=== PATIENT | female | born 1970 | race American Indian/Alaskan Native ===

== ENCOUNTER 2016-08-01 22:11 | Emergency (ER) | payer MEDICAID ==
[2016-08-02] MEDS ORDERED: NORCO 5/325 PO ONE (04:33)
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
[2016-08-02 04:51] VITALS: BP 145/78
== END 2016-08-02 04:50 | disposition home or self-care (01) ==
LOC: ED 22:11
DX: K08.89 Other specified disorders of teeth and supporting structures (principal); J45.909 Unspecified asthma, uncomplicated; F17.200 Nicotine dependence, unspecified, uncomplicated; J44.9 Chronic obstructive pulmonary disease, unspecified; Z91.018 Allergy to other foods; Z88.0 Allergy status to penicillin
CPT/HCPCS: 99282

== ENCOUNTER 2016-08-18 17:08 | Emergency (ER) | payer MEDICAID ==
[2016-08-18 17:56] LABS: Hematocrit 44.1 % (30.3-42.9); Hemoglobin 14.5 gm/dl (10.1-14.3); Mean Corpuscular HGB Conc 33 % (30-34); Mean Corpuscular Hemoglobin 29 pg (28-32); Mean Corpuscular Volume 88 fl (79-97); Platelet Count 200 K/mm3 (140-440); Red Blood Count 5.04 M/mm3 (3.65-5.03); Red Cell Distribution Width 14.3 % (13.2-15.2); White Blood Count 5.1 K/mm3 (4.5-11.0)
[2016-08-18 18:15] LABS: Anion Gap 19 mmol/L; BUN/Creatinine Ratio 13.33; Blood Urea Nitrogen 8 mg/dL (7-17); Calcium 9.3 mg/dL (8.4-10.2); Carbon Dioxide 23 mmol/L (22-30); Chloride 102.2 mmol/L (98-107); Glucose 84 mg/dL (65-100); Potassium 3.9 mmol/L (3.6-5.0); Sodium 140 mmol/L (137-145)
[2016-08-18 18:37] LABS: Bacteria,Urine 1+ /HPF (Negative); Bilirubin,Urine NEG (Negative); Blood,Urine NEG (Negative); Ketones,Urine NEG (Negative); Leukocyte Esterase,Urine LG (Negative); Mucus,Urine FEW /HPF; Nitrite,Urine NEG (Negative); Protein,Urine <15 mg/dL mg/dL (Negative)
--- NOTE | 2016-08-18 23:25 | Cat Scan Report ---
FINAL REPORT EXAM: CT LUMBAR SPINE WO CON HISTORY: BACK PAIN TECHNIQUE: CT images are acquired through the lumbar spine without contrast. Transaxial coronal and sagittal reformations are provided. PRIORS: None. FINDINGS: Lumbar lordosis is intact. Vertebral body heights and intervertebral disc spaces are preserved. Posterior disc bulging is present at L4-L5 and L5-S1. There is no severe spinal canal or neural foraminal stenosis within limits of noncontrast CT. No listhesis, spondylolysis or other fracture. Paraspinal soft tissues to include imaged portions of the abdomen and pelvis demonstrate an unremarkable noncontrast appearance. IMPRESSION: No fracture or gross lumbar malalignment. Posterior disc bulges are present at L4-L5 and L5-S1. There is no evident severe stenosis within limits of noncontrast CT. Consider MRI for further evaluation as warranted.
--- NOTE | 2016-08-19 00:09 | Cat Scan Report ---
FINAL REPORT PROCEDURE: CT THORACIC SPINE WO CON TECHNIQUE: Computerized axial tomography of the thoracic spine was performed from C7 - L1 without contrast material. HISTORY: BACK PAIN COMPARISON: No prior studies are available for comparison. FINDINGS: There are no fractures or malalignments. The disc spaces are normal. The facet joints are intact there is no bony spinal or foraminal stenosis. There is no paraspinal or epidural soft tissue abnormality. IMPRESSION: Normal Examination
[2016-08-19] MEDS ORDERED: ZOFRAN IV ONE (00:43)
[2016-08-19] MEDS ORDERED: SUBLIMAZE IV ONE (00:43)
[2016-08-19] MEDS ORDERED: TORADOL IV ONE (00:43)
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
--- NOTE | 2016-08-19 03:08 | Magnetic Resonance Report ---
FINAL REPORT PROCEDURE: MR LUMBAR SPINE WO CON TECHNIQUE: Magnetic resonance imaging of the lumbar spine was performed using standard pulse sequences without contrast material. CPT 89268 HISTORY: low back pain, LLE pain, urinary incontinence COMPARISON: CT dated 08/18/2016 FINDINGS: There is no fracture, malalignment or bone marrow edema. The conus medullaris ends at L1 and is normal in configuration. There is no intramedullary edema, hemorrhage, mass or gliosis. L1-2: No significant abnormality . L2-3: No significant abnormality . L3-4: There is mild disc bulging. There is no herniation or spinal stenosis. There is mild facet arthropathy. There is no foraminal stenosis. L4-5: There is mild loss of disc height and disc bulging. There is moderate facet hypertrophy causing moderate bilateral foraminal stenosis. There is no disc herniation or spinal stenosis.. L5-S1: There is moderate loss of disc height and mild disc bulging. There is no disc herniation. There is moderate facet hypertrophy. There is severe bilateral foraminal stenosis is which is worse on the left. Other: The sacrum and sacroiliac joints are intact. Paraspinal soft tissues and epidural soft tissues are unremarkable.. IMPRESSION: There is no acute traumatic injury. There is no disc herniation or cord compression. There are degenerative disc and facet changes as described at L3-L4 through L5-S1 causing foraminal stenosis which is worse at L5-S1.
[2016-08-19 04:38] VITALS: BP 131/89
== END 2016-08-19 04:39 | disposition home or self-care (01) ==
LOC: ED 17:08
DX: M54.16 Radiculopathy, lumbar region (principal); M54.9 Dorsalgia, unspecified; J45.909 Unspecified asthma, uncomplicated; J44.9 Chronic obstructive pulmonary disease, unspecified; F17.200 Nicotine dependence, unspecified, uncomplicated
CPT/HCPCS: 36415; 72128; 72131; 72148; 80048; 81001; 81025; 85027; 96374; 96375; 99284; J1885; J2405; J3010

== ENCOUNTER 2017-01-01 05:12 | Emergency (ER) | payer MEDICAID ==
[2017-01-01] MEDS ORDERED: PROVENTIL IH ONE (05:19)
[2017-01-01 05:37] LABS: Hematocrit 45.8 % (30.3-42.9); Hemoglobin 14.8 gm/dl (10.1-14.3); Mean Corpuscular HGB Conc 32 % (30-34); Mean Corpuscular Hemoglobin 29 pg (28-32); Mean Corpuscular Volume 88 fl (79-97); Platelet Count 229 K/mm3 (140-440); Red Blood Count 5.19 M/mm3 (3.65-5.03); Red Cell Distribution Width 13.9 % (13.2-15.2); White Blood Count 6.2 K/mm3 (4.5-11.0)
--- NOTE | 2017-01-01 05:45 | XRay Report ---
FINAL REPORT EXAM: XR CHEST ROUTINE 2V HISTORY: Shortness of breath TECHNIQUE: PA and lateral chest radiographs PRIORS: None. FINDINGS: No mediastinal shift. Cardiac silhouette is not enlarged. No pneumothorax, effusion, or focal pulmonary opacity. No acute skeletal finding. IMPRESSION: No focal pulmonary opacity.
[2017-01-01 05:53] LABS: Anion Gap 19 mmol/L; BUN/Creatinine Ratio 11; Blood Urea Nitrogen 8 mg/dL (7-17); Calcium 9.1 mg/dL (8.4-10.2); Carbon Dioxide 23 mmol/L (22-30); Chloride 105.1 mmol/L (98-107); Glucose 94 mg/dL (65-100); Potassium 4.6 mmol/L (3.6-5.0); Sodium 142 mmol/L (137-145)
[2017-01-01 06:33] LABS: Blastocytes % (Manual) 0 %
[2017-01-01 06:34] LABS: Diff Status Complete; Platelet Estimate Consistent w Auto
--- NOTE | 2017-01-01 06:49 | Emergency Department Report ---
ED General Adult HPI - General Chief complaint: Dyspnea/Respdistress Stated complaint: SOB Time Seen by Provider: 01/01/17 06:47 Source: patient Mode of arrival: Ambulatory Limitations: No Limitations - History of Present Illness Initial comments: Patient has a home neb machine and is experiencing an exacerbation of her asthma for the past 2 weeks. She was previously in [place]. States that she's had some cough with occasional white sputum. She does not complain of chest pain at all. She's had no hemoptysis no leg swelling no leg pain. She does admit to some anxiety. She is not currently on prednisone. -: Gradual, week(s) Consistency: constant (wheezing denies pain) Improves with: none Worsens with: none Associated Symptoms: denies other symptoms, other (anxiety) Treatments Prior to Arrival: none - Related Data Home Medications Medication Instructions Recorded Confirmed Last Taken Phenobarbital 1 tab PO DAILY 09/15/14 02/07/15 Unknown Phenytoin [Dilantin] 100 mg PO Q8HR 02/07/15 02/07/15 02/07/15 Previous Rx's Medication Instructions Recorded Last Taken Type ALBUTEROL Inhaler [ProAir HFA 1 puff IH BID PRN #2 inha 10/26/13 02/07/15 Rx Inhaler] Fluticasone (Nf) [Flovent 220 2 puff IH BID #2 inh 10/26/13 Unknown Rx MCG/PUFF HFA] Montelukast [Singulair] 10 mg PO QHS #30 tablet 10/26/13 02/07/15 Rx Citalopram [Celexa] 20 mg PO QDAY #30 tablet 01/21/15 Unknown Rx busPIRone [Buspar] 10 mg PO BID #60 tab 01/21/15 Unknown Rx risperiDONE [RisperDAL] 2 mg PO QDAY #30 tab 01/21/15 02/07/15 Rx Ciprofloxacin HCl [Ciprofloxacin 500 mg PO Q12H #10 tab 01/13/16 Unknown Rx TAB] Prednisone [predniSONE 10 mg 10 mg PO .TAPER #1 tab.ds.pk 01/13/16 Unknown Rx (6-Day Pack, 21 Tabs)] guaiFENesin/DEXTROMETHORPHAN 10 ml PO TID PRN 15 Days liquid 01/13/16 Unknown Rx [Robitussin Cough-Chest Dm Liq] HYDROcodone/APAP 5-325 [[place] 1 each PO Q4HR PRN #15 tablet 08/02/16 Unknown Rx 5/325] HYDROcodone/APAP 5-325 [[place] 1 - 2 each PO Q6HR PRN #20 tablet 08/19/16 Unknown Rx 5/325] Ibuprofen [Motrin 800 MG tab] 800 mg PO Q8HR PRN #20 tablet 08/19/16 Unknown Rx ALBUTEROL Inhaler [ProAir HFA 2 puff IH QID PRN #1 inhalation 01/01/17 Unknown Rx Inhaler] Albuterol Sulfate [Albuterol 0.63% 0.63 mg IH TID PRN #60 ml 01/01/17 Unknown Rx NEBS] Azithromycin [Zithromax Z-NARDA] 250 mg PO DAILY #6 tablet 01/01/17 Unknown Rx predniSONE [Deltasone] 50 mg PO QDAY #6 tab 01/01/17 Unknown Rx Allergies Allergy/AdvReac Type Severity Reaction Status Date / Time Penicillins Allergy Swelling Verified 11/05/12 11:55 tomato [Tomato] Allergy Hives Verified 10/25/13 08:30 ED Review of Systems ROS: Stated complaint: SOB Other details as noted in HPI Constitutional: denies: chills, fever Eyes: denies: eye pain, eye discharge, vision change ENT: denies: ear pain, throat pain Respiratory: cough, wheezing Cardiovascular: denies: chest pain, palpitations Endocrine: no symptoms reported Gastrointestinal: denies: abdominal pain, nausea, diarrhea Genitourinary: denies: urgency, dysuria, discharge Musculoskeletal: denies: back pain, joint swelling, arthralgia Skin: denies: rash, lesions Neurological: denies: headache, weakness, paresthesias Psychiatric: denies: anxiety, depression Hematological/Lymphatic: denies: easy bleeding, easy bruising ED Past Medical Hx - Past Medical History Previous Medical History?: Yes Hx Congestive Heart Failure: No Hx Diabetes: No Hx Seizures: Yes Hx Asthma: Yes Hx COPD: Yes Hx HIV: No Additional medical history: Bronchitis,sleep apnea//Fx pelvis in 2016 - Surgical History Past Surgical History?: Yes Additional Surgical History: right arm and leg stabbing nothing acute - Social History Smoking Status: Current Every Day Smoker - Medications Home Medications: Home Medications Medication Instructions Recorded Confirmed Last Taken Type ALBUTEROL Inhaler [ProAir HFA 1 puff IH BID PRN #2 inha 10/26/13 02/07/15 Rx Inhaler] Fluticasone (Nf) [Flovent 220 2 puff IH BID #2 inh 10/26/13 02/07/15 Unknown Rx MCG/PUFF HFA] Montelukast [Singulair] 10 mg PO QHS #30 tablet 10/26/13 02/07/15 02/07/15 Rx Phenobarbital 1 tab PO DAILY 09/15/14 02/07/15 Unknown History Citalopram [Celexa] 20 mg PO QDAY #30 tablet 01/21/15 02/07/15 Unknown Rx busPIRone [Buspar] 10 mg PO BID #60 tab 01/21/15 02/07/15 Unknown Rx risperiDONE [RisperDAL] 2 mg PO QDAY #30 tab 01/21/15 02/07/15 02/07/15 Rx Phenytoin [Dilantin] 100 mg PO Q8HR 02/07/15 02/07/15 02/07/15 History Ciprofloxacin HCl [Ciprofloxacin 500 mg PO Q12H #10 tab 01/13/16 Unknown Rx TAB] Prednisone [predniSONE 10 mg 10 mg PO .TAPER #1 tab.ds.pk 01/13/16 Unknown Rx (6-Day Pack, 21 Tabs)] guaiFENesin/DEXTROMETHORPHAN 10 ml PO TID PRN 15 Days liquid 01/13/16 Unknown Rx [Robitussin Cough-Chest Dm Liq] HYDROcodone/APAP 5-325 [[place] 1 each PO Q4HR PRN #15 tablet 08/02/16 Unknown Rx 5/325] HYDROcodone/APAP 5-325 [[place] 1 - 2 each PO Q6HR PRN #20 tablet 08/19/16 Unknown Rx 5/325] Ibuprofen [Motrin 800 MG tab] 800 mg PO Q8HR PRN #20 tablet 08/19/16 Unknown Rx ALBUTEROL Inhaler [ProAir HFA 2 puff IH QID PRN #1 inhalation 01/01/17 Unknown Rx Inhaler] Albuterol Sulfate [Albuterol 0.63% 0.63 mg IH TID PRN #60 ml 01/01/17 Unknown Rx NEBS] Azithromycin [Zithromax Z-NARDA] 250 mg PO DAILY #6 tablet 01/01/17 Unknown Rx predniSONE [Deltasone] 50 mg PO QDAY #6 tab 01/01/17 Unknown Rx ED Physical Exam - General Limitations: No Limitations General appearance: alert, in no apparent distress, anxious - Head Head exam: Present: atraumatic, normocephalic - Eye Eye exam: Present: normal appearance, PERRL, EOMI. Absent: scleral icterus - ENT ENT exam: Present: mucous membranes moist - Neck Neck exam: Present: normal inspection. Absent: tenderness, meningismus - Respiratory Respiratory exam: Present: wheezes, decreased breath sounds. Absent: respiratory distress - Cardiovascular Cardiovascular Exam: Present: regular rate, normal rhythm. Absent: systolic murmur, diastolic murmur, rubs, gallop - GI/Abdominal GI/Abdominal exam: Present: soft, normal bowel sounds. Absent: distended, tenderness, guarding, rebound, rigid - Extremities Exam Extremities exam: Present: normal inspection, normal capillary refill. Absent: tenderness, pedal edema, joint swelling, calf tenderness - Back Exam Back exam: Present: normal inspection. Absent: CVA tenderness (R), CVA tenderness (L) - Neurological Exam Neurological exam: Present: alert, oriented X3, CN II-XII intact. Absent: motor sensory deficit - Psychiatric Psychiatric exam: Present: normal affect, normal mood - Skin Skin exam: Present: warm, dry, intact, normal color. Absent: rash ED Course Vital Signs 01/01/17 01/01/17 01/01/17 05:15 05:52 05:56 Temperature 97.3 F L Pulse Rate 109 H 78 103 H Pulse Rate [ Anterior Bilateral Throughout] Respiratory 28 H 22 16 Rate Respiratory Rate [Anterior Bilateral Throughout] Blood Pressure 137/90 100/72 Blood Pressure [Left] O2 Sat by Pulse 97 99 Oximetry 01/01/17 01/01/17 01/01/17 05:57 06:00 06:01 Temperature 98.3 F Pulse Rate 78 Pulse Rate [ 90 Anterior Bilateral Throughout] Respiratory 22 22 Rate Respiratory 18 Rate [Anterior Bilateral Throughout] Blood Pressure 110/68 Blood Pressure 100/72 [Left] O2 Sat by Pulse 94 98 Oximetry 01/01/17 01/01/17 01/01/17 06:06 06:10 06:14 Temperature Pulse Rate 69 70 Pulse Rate [ 98 H Anterior Bilateral Throughout] Respiratory 17 19 Rate Respiratory 20 Rate [Anterior Bilateral Throughout] Blood Pressure 110/68 110/68 Blood Pressure [Left] O2 Sat by Pulse 97 98 Oximetry 01/01/17 01/01/17 07:33 07:38 Temperature 98.4 F Pulse Rate 71 Pulse Rate [ 71 Anterior Bilateral Throughout] Respiratory 20 Rate Respiratory 20 Rate [Anterior Bilateral Throughout] Blood Pressure Blood Pressure 147/95 [Left] O2 Sat by Pulse 98 Oximetry - Reevaluation(s) Reevaluation #1: Patient with steroids and nebs. She states that her symptoms improved to the point where she feels quite comfortable with discharge. I don't hear any residual wheezes on reexamination. She will be continued on an antibiotic and prednisone. She is appropriate for outpatient disposition. She wants to know what is causing her persistent wheezing but apparently is still smoking. 01/01/17 08:24 01/01/17 08:25 ED Medical Decision Making - Lab Data Result diagrams: 01/01/17 05:21 01/01/17 05:21 Laboratory Results - last 24 hr 01/01/17 01/01/17 05:21 05:21 WBC 6.2 RBC 5.19 H Hgb 14.8 H Hct 45.8 H MCV 88 MCH 29 MCHC 32 RDW 13.9 Plt Count 229 Add Manual Diff Complete Total Counted 100 Seg Neutrophils % Carpet Cutter Seg Neuts % (Manual) 36.0 L Band Neutrophils % 1.0 Lymphocytes % (Manual) 49.0 H Reactive Lymphs % (Man) 1.0 Monocytes % (Manual) 7.0 Eosinophils % (Manual) 2.0 Basophils % (Manual) 4.0 H Metamyelocytes % 0 Myelocytes % 0 Promyelocytes % 0 Blast Cells % 0 Nucleated RBC % Not Reportable Seg Neutrophils # Man 2.2 Band Neutrophils # 0.1 Lymphocytes # (Manual) 3.0 Abs React Lymphs (Man) 0.1 Monocytes # (Manual) 0.4 Eosinophils # (Manual) 0.1 Basophils # (Manual) 0.2 H Metamyelocytes # 0.0 Myelocytes # 0.0 Promyelocytes # 0.0 Blast Cells # 0.0 WBC Morphology Not Reportable Hypersegmented Neuts Not Reportable Hyposegmented Neuts Not Reportable Hypogranular Neuts Not Reportable Smudge Cells Not Reportable Toxic Granulation Not Reportable Toxic Vacuolation Not Reportable Dohle Bodies Not Reportable Pelger-Huet Anomaly Not Reportable Ingrid Rods Not Reportable Platelet Estimate Consistent w auto Clumped Platelets Not Reportable Plt Clumps, EDTA Not Reportable Large Platelets Not Reportable Giant Platelets Not Reportable Platelet Satelliting Not Reportable Plt Morphology Comment Not Reportable RBC Morphology Not Reportable Dimorphic RBCs Not Reportable Polychromasia Not Reportable Hypochromasia Not Reportable Poikilocytosis Not Reportable Anisocytosis Not Reportable Microcytosis Not Reportable Macrocytosis Not Reportable Spherocytes Not Reportable Pappenheimer Bodies Not Reportable Sickle Cells Not Reportable Target Cells Not Reportable Tear Drop Cells Not Reportable Ovalocytes Not Reportable Helmet Cells Not Reportable Dillard-Dunlap Bodies Not Reportable Benezett Rings Not Reportable [place] Cells Not Reportable Bite Cells Not Reportable Crenated Cell Not Reportable Elliptocytes Not Reportable Acanthocytes (Spur) Not Reportable Rouleaux Not Reportable Hemoglobin C Crystals Not Reportable Schistocytes Not Reportable Malaria parasites Not Reportable Shai Bodies Not Reportable Hem Pathologist Commnt No Sodium 142 Potassium 4.6 Chloride 105.1 Carbon Dioxide 23 Anion Gap 19 BUN 8 Creatinine 0.7 Estimated GFR > 60 BUN/Creatinine Ratio 11 Glucose 94 Calcium 9.1 Troponin T < 0.010 - EKG Data -: EKG Interpreted by Me EKG shows normal: sinus rhythm, axis, intervals, QRS complexes, ST-T waves Rate: normal - EKG Data Interpretation: no acute changes (chest x-ray showed no acute process) Critical care attestation.: If time is entered above; I have spent that time in minutes in the direct care of this critically ill patient, excluding procedure time. ED Disposition Clinical Impression: COPD with acute exacerbation Disposition: DC-01 TO HOME OR SELFCARE Is pt being admited?: No Does the pt Need Aspirin: No Condition: Stable Instructions: Chronic Obstructive Pulmonary Disease (ED), How to Stop Smoking ( ED) Additional Instructions: Return any acute change or worsening symptoms medications as directed. Certainly smoking well exacerbate your condition have lead to worsening chronic lung disease. Follow-up with your primary care provider and return as needed. Prescriptions: ALBUTEROL Inhaler [ProAir HFA Inhaler] 2 puff IH QID PRN #1 inhalation PRN Reason: Shortness Of Breath Albuterol Sulfate [Albuterol 0.63% NEBS] 0.63 mg IH TID PRN #60 ml PRN Reason: Wheezing Azithromycin [Zithromax Z-NARDA] 250 mg PO DAILY #6 tablet predniSONE [Deltasone] 50 mg PO QDAY #6 tab Referrals: PRIMARY CARE, [Primary Care Provider] - 2-3 Days [facility] [Provider Group] - 3-5 Days Time of Disposition: 08:29
[2017-01-01] MEDS ORDERED: DUONEB *Not for PRN Use IH ONE (07:22)
[2017-01-01] MEDS ORDERED: ATIVAN PO ONE (07:24)
[2017-01-01] MEDS ORDERED: TESSALON PERLES PO ONE (07:24)
[2017-01-01 08:56] VITALS: BP 135/64
== END 2017-01-01 08:56 | disposition home or self-care (01) ==
LOC: ED 05:12
DX: J44.1 Chronic obstructive pulmonary disease with (acute) exacerbation (principal); R56.9 Unspecified convulsions; J45.909 Unspecified asthma, uncomplicated; F17.200 Nicotine dependence, unspecified, uncomplicated; Z88.0 Allergy status to penicillin; Z91.018 Allergy to other foods
CPT/HCPCS: 36415; 71020; 80048; 84484; 85007; 85025; 93005; 93010; 94640; 96374; 99284; J2930

== ENCOUNTER 2018-04-26 12:22 | Emergency (ER) | payer MEDICAID ==
[2018-04-26] MEDS ORDERED: THERMAZENE 50 GRAM TP ONE (12:26)
[2018-04-26 12:28] VITALS: BP 140/87
--- NOTE | 2018-04-26 12:30 | Emergency Department Report ---
Burn HPI - History Stated Complaint: STOMACH BURN Chief Complaint: Burn/Smoke Inhalation Time Seen by Provider: 04/26/18 12:26 Duration of Burn: 1 Day Burn Location: Abdomen Burn Etiology: Accidental Pain: Mild Tetanus Status: Up to Date Symptoms:: Yes Blistering, Yes Able to Tolerate Fluids, No Malaise, No Myalgias, No Fever, No Vomiting Other History: less than 1 percent tbsa to abd while frying fish yesterday. 1 blister dime size. - Home Meds and Allergies Home Medications: Previous Rx's Medication Instructions Recorded Last Taken Type ALBUTEROL Inhaler (OR & NICU) 2 puff IH QID PRN #1 inhalation 01/01/17 03/07/17 Rx [ProAir HFA Inhaler] Nicotine [Nicotine Patch] 1 each TD DAILY #30 patch.td24 03/12/17 Unknown Rx Silver Sulfadiazine [Ssd] 400 gm TP BID #1 each 04/26/18 Unknown Rx cephALEXin [Keflex] 500 mg PO Q12HR #20 cap 04/26/18 Unknown Rx Allergies/Adverse Reactions: Allergies Allergy/AdvReac Type Severity Reaction Status Date / Time Penicillins Allergy Swelling Verified 11/05/12 11:55 tomato [Tomato] Allergy Hives Verified 10/25/13 08:30 ED Review of Systems ROS: Stated complaint: STOMACH BURN Other details as noted in HPI Comment: All other systems reviewed and negative Constitutional: denies: chills Eyes: denies: eye pain ENT: denies: throat pain Cardiovascular: denies: palpitations Endocrine: denies: excessive sweating Gastrointestinal: denies: vomiting Genitourinary: denies: urgency Musculoskeletal: denies: back pain Skin: as per HPI, lesions Neurological: denies: headache Psychiatric: denies: depression Hematological/Lymphatic: denies: easy bleeding ED Past Medical Hx - Past Medical History Previous Medical History?: Yes Hx Hypertension: Yes Hx Congestive Heart Failure: No Hx Diabetes: No Hx Renal Disease: No Hx Seizures: Yes Hx Kidney Stones: No Hx Asthma: Yes Hx COPD: Yes Hx HIV: No Additional medical history: Bronchitis,sleep apnea//Fx pelvis in 2016 - Surgical History Past Surgical History?: Yes Hx Pacemaker: No Additional Surgical History: right arm and leg stabbing nothing acute - Family History Family history: no significant - Social History Smoking Status: Current Every Day Smoker - Medications Home Medications: Home Medications Medication Instructions Recorded Confirmed Last Taken Type ALBUTEROL Inhaler (OR & NICU) 2 puff IH QID PRN #1 inhalation 01/01/17 03/07/17 03/07/17 Rx [ProAir HFA Inhaler] Nicotine [Nicotine Patch] 1 each TD DAILY #30 patch.td24 03/12/17 Unknown Rx Silver Sulfadiazine [Ssd] 400 gm TP BID #1 each 04/26/18 Unknown Rx cephALEXin [Keflex] 500 mg PO Q12HR #20 cap 04/26/18 Unknown Rx Exam - Exam General: Vital signs noted. No distress. Alert and acting appropriately. HEENT: Yes Moist Mucous Membranes, No Conjuctival Injection, No Corneal Edema Skin: Yes Blistering, No Erythroderma, No Tenderness, No Edema Exam: Yes Normal Heart Sounds, No Respiratory Distress, No Sensory Deficits, No Musculoskeletal Pain Exam: <1% tbsa 1/2 degree burn from grease, done yesterday. 1 blister with mild redness around ED Medical Decision Making - Medical Decision Making simple burn tdap utd non toxic non ill appearing will dc home on ssd and follow up MSE Completed Critical care attestation.: If time is entered above; I have spent that time in minutes in the direct care of this critically ill patient, excluding procedure time. ED Disposition Clinical Impression: Burn Disposition: DC-01 TO HOME OR SELFCARE Is pt being admited?: No Does the pt Need Aspirin: No Condition: Stable Instructions: Partial Thickness Burn (ED) Additional Instructions: wound care as described follow up with [facility] if persists motrin or tylenol for pain or fever Prescriptions: cephALEXin [Keflex] 500 mg PO Q12HR #20 cap Silver Sulfadiazine [Ssd] 400 gm TP BID #1 each Referrals: [facility] [Outside] - 3-5 Days Time of Disposition: 12:29
[2018-04-26] MEDS ORDERED: CEPHULAC ONE (18:28)
== END 2018-04-26 13:23 | disposition home or self-care (01) ==
LOC: ED 12:22
DX: T21.22XA Burn of second degree of abdominal wall, initial encounter (principal); T31.0 Burns involving less than 10% of body surface; X10.2XXA Contact with fats and cooking oils, initial encounter; Y93.89 Activity, other specified; Y92.89 Other specified places as the place of occurrence of the external cause; Y99.8 Other external cause status
CPT/HCPCS: 99282

== ENCOUNTER 2018-06-08 11:01 | Emergency (ER) | payer MEDICAID ==
[2018-06-08] MEDS ORDERED: PROVENTIL IH ONE ×3 (11:13→12:35)
[2018-06-08] MEDS ORDERED: ATROVENT IH ONE ×3 (11:13→12:35)
[2018-06-08] MEDS ORDERED: MAGNESIUM SULFATE 2GM/50ML 0 GM/0 ML BAG IV ONE (11:25)
[2018-06-08] MEDS ORDERED: SOLU-Medrol ONE (11:25)
[2018-06-08] MEDS ORDERED: DECADRON IV ONE (11:27)
--- NOTE | 2018-06-08 11:30 | Emergency Department Report ---
ED General Adult HPI - General Chief complaint: Adult Asthma Stated complaint: WHEEZING/BRONCHITIS Time Seen by Provider: 06/08/18 11:19 Source: patient Mode of arrival: Ambulatory Limitations: No Limitations - History of Present Illness Initial comments: Patient presents to the emergency department with a chief complaint of shortness of breath. Patient has a history of asthma and was diagnosed with bronchitis last by her primary care physician. At that time the patient was placed on antibiotics and albuterol. Patient states the symptoms have gotten worse since that time. Patient complains of chest pain with cough but other than that denies chest pain. -: Gradual Severity scale (0 -10): 1 Quality: burning Consistency: constant Improves with: none Worsens with: none Associated Symptoms: denies other symptoms Treatments Prior to Arrival: none - Related Data Previous Rx's Medication Instructions Recorded Last Taken Type ALBUTEROL Inhaler (OR & NICU) 2 puff IH QID PRN #1 inhalation 01/01/17 03/07/17 Rx [ProAir HFA Inhaler] Nicotine [Nicotine Patch] 1 each TD DAILY #30 patch.td24 03/12/17 Unknown Rx Ibuprofen [Motrin] 800 mg PO Q8HR PRN #21 tablet 06/08/18 Unknown Rx Allergies Allergy/AdvReac Type Severity Reaction Status Date / Time Penicillins Allergy Swelling Verified 06/08/18 11:04 tomato [Tomato] Allergy Hives Verified 06/08/18 11:04 ED Review of Systems ROS: Stated complaint: WHEEZING/BRONCHITIS Other details as noted in HPI Comment: All other systems reviewed and negative Constitutional: denies: chills, fever Eyes: denies: eye pain, eye discharge, vision change ENT: denies: ear pain, throat pain Respiratory: cough, shortness of breath. denies: wheezing Cardiovascular: denies: chest pain, palpitations Endocrine: no symptoms reported Gastrointestinal: denies: abdominal pain, nausea, diarrhea Genitourinary: denies: urgency, dysuria, discharge Musculoskeletal: denies: back pain, joint swelling, arthralgia Skin: denies: rash, lesions Neurological: denies: headache, weakness, paresthesias Psychiatric: denies: anxiety, depression Hematological/Lymphatic: denies: easy bleeding, easy bruising ED Past Medical Hx - Past Medical History Hx Hypertension: Yes Hx Congestive Heart Failure: No Hx Diabetes: No Hx Renal Disease: No Hx Seizures: Yes Hx Kidney Stones: No Hx Asthma: Yes Hx COPD: Yes Hx HIV: No Additional medical history: Bronchitis,sleep apnea//Fx pelvis in 2016 - Surgical History Hx Pacemaker: No Additional Surgical History: right arm and leg stabbing nothing acute - Social History Smoking Status: Never Smoker Substance Use Type: None - Medications Home Medications: Home Medications Medication Instructions Recorded Confirmed Last Taken Type ALBUTEROL Inhaler (OR & NICU) 2 puff IH QID PRN #1 inhalation 01/01/17 06/08/18 03/07/17 Rx [ProAir HFA Inhaler] Nicotine [Nicotine Patch] 1 each TD DAILY #30 patch.td24 03/12/17 06/08/18 Unknown Rx Ibuprofen [Motrin] 800 mg PO Q8HR PRN #21 tablet 06/08/18 Unknown Rx ED Physical Exam - General Limitations: No Limitations General appearance: alert, in no apparent distress - Head Head exam: Present: atraumatic, normocephalic - Eye Eye exam: Present: normal appearance - ENT ENT exam: Present: mucous membranes moist - Neck Neck exam: Present: normal inspection - Respiratory Respiratory exam: Present: normal lung sounds bilaterally, wheezes. Absent: respiratory distress - Cardiovascular Cardiovascular Exam: Present: normal rhythm, tachycardia. Absent: systolic murmur, diastolic murmur, rubs, gallop - GI/Abdominal GI/Abdominal exam: Present: soft, normal bowel sounds. Absent: distended, tenderness - Extremities Exam Extremities exam: Present: normal inspection - Back Exam Back exam: Present: normal inspection - Neurological Exam Neurological exam: Present: alert, oriented X3, CN II-XII intact. Absent: motor sensory deficit - Psychiatric Psychiatric exam: Present: normal affect, normal mood - Skin Skin exam: Present: warm, dry, intact, normal color. Absent: rash ED Course Vital Signs 06/08/18 06/08/18 06/08/18 11:15 12:00 12:39 Pulse Rate [ 104 H 106 H 86 Anterior Bilateral Throughout] Respiratory 28 H 24 22 Rate [Anterior Bilateral Throughout] ED Medical Decision Making - Lab Data Result diagrams: 06/08/18 11:34 06/08/18 11:34 Lab Results 06/08/18 06/08/18 Range/Units 11:34 11:34 WBC 4.3 L (4.5-11.0) K/mm3 RBC 4.44 (3.65-5.03) M/mm3 Hgb 13.0 (10.1-14.3) gm/dl Hct 38.9 (30.3-42.9) % MCV 88 (79-97) fl MCH 29 (28-32) pg MCHC 34 (30-34) % RDW 14.4 (13.2-15.2) % Plt Count 195 (140-440) K/mm3 Lymph % (Auto) 42.0 H (13.4-35.0) % [place] % (Auto) 7.9 H (0.0-7.3) % Eos % (Auto) 4.3 (0.0-4.3) % Baso % (Auto) 0.7 (0.0-1.8) % Lymph # 1.8 (1.2-5.4) K/mm3 [place] # 0.3 (0.0-0.8) K/mm3 Eos # 0.2 (0.0-0.4) K/mm3 Baso # 0.0 (0.0-0.1) K/mm3 Seg Neutrophils % 45.1 (40.0-70.0) % Seg Neutrophils # 1.9 (1.8-7.7) K/mm3 Sodium 140 (137-145) mmol/L Potassium 4.1 (3.6-5.0) mmol/L Chloride 103.4 (98-107) mmol/L Carbon Dioxide 24 (22-30) mmol/L Anion Gap 17 mmol/L BUN 10 (7-17) mg/dL Creatinine 0.6 L (0.7-1.2) mg/dL Estimated GFR > 60 ml/min BUN/Creatinine Ratio 17 % Glucose 79 (65-100) mg/dL Calcium 9.4 (8.4-10.2) mg/dL Total Bilirubin 0.40 (0.1-1.2) mg/dL AST 18 (5-40) units/L ALT 14 (7-56) units/L Alkaline Phosphatase 70 (35-129) units/L NT-Pro-B Natriuret Pep 63.17 (0-450) pg/mL Total Protein 6.8 (6.3-8.2) g/dL Albumin 4.1 (3.9-5) g/dL Albumin/Globulin Ratio 1.5 % - Radiology Data Radiology results: report reviewed - Medical Decision Making Patient improved significantly after 2 continuous breathing treatments Patient instructed to continue her nebulizer treatments at home along with her antibiotics and cough medicine. Critical care attestation.: If time is entered above; I have spent that time in minutes in the direct care of this critically ill patient, excluding procedure time. ED Disposition Clinical Impression: Asthma Disposition: DC-01 TO HOME OR SELFCARE Is pt being admited?: No Does the pt Need Aspirin: No Condition: Stable Instructions: Asthma (ED) Additional Instructions: return if worse Prescriptions: Ibuprofen [Motrin] 800 mg PO Q8HR PRN #21 tablet PRN Reason: pain Referrals: [facility] [Provider Group] - 3-5 Days [facility] [Provider Group] - 3-5 Days
[2018-06-08 11:44] LABS: Basophils % (Auto) 0.7 % (0.0-1.8); Eosinophils # (Auto) 0.2 K/mm3 (0.0-0.4); Eosinophils % (Auto) 4.3 % (0.0-4.3); Hematocrit 38.9 % (30.3-42.9); Lymphocytes # (Auto) 1.8 K/mm3 (1.2-5.4); Mean Corpuscular HGB Conc 34 % (30-34); Mean Corpuscular Volume 88 fl (79-97); Monocytes # (Auto) 0.3 K/mm3 (0.0-0.8); Monocytes % (Auto) 7.9 % (0.0-7.3); Platelet Count 195 K/mm3 (140-440); Red Blood Count 4.44 M/mm3 (3.65-5.03); Red Cell Distribution Width 14.4 % (13.2-15.2)
[2018-06-08 12:09] LABS: Alanine Aminotransferase 14 units/L (7-56); Albumin 4.1 g/dL (3.9-5); BUN/Creatinine Ratio 17; Blood Urea Nitrogen 10 mg/dL (7-17); Calcium 9.4 mg/dL (8.4-10.2); Hemolysis Index 14
--- NOTE | 2018-06-08 12:49 | XRay Report ---
AP CHEST: HISTORY: Shortness of breath AP view of the chest demonstrates a normal mediastinal and cardiac contour with clear lungs and normal bony and soft tissue structures. IMPRESSION: Unremarkable AP chest.
[2018-06-08 13:35] VITALS: BP 120/68
== END 2018-06-08 14:23 | disposition home or self-care (01) ==
LOC: ED 11:01
DX: J45.909 Unspecified asthma, uncomplicated (principal)
CPT/HCPCS: 36415; 71045; 80053; 83880; 85025; 94640; 96374; 99284; J1100; J2930; J3475

== ENCOUNTER 2018-08-20 12:16 | Emergency (ER) | payer MEDICAID ==
[2018-08-20 12:31] VITALS: BP 127/63
[2018-08-20] MEDS ORDERED: NORCO 10/325 PO ONE (13:37)
[2018-08-20] MEDS ORDERED: ZOFRAN ODT PO ONE (13:37)
[2018-08-20] MEDS ORDERED: DECADRON IM ONE (13:38)
[2018-08-20] MEDS ORDERED: ATROVENT IH ONE (13:38)
[2018-08-20] MEDS ORDERED: PROVENTIL IH ONE (13:38)
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
== END 2018-08-20 15:14 | disposition home or self-care (01) ==
LOC: ED 12:16
DX: J44.1 Chronic obstructive pulmonary disease with (acute) exacerbation (principal); I10 Essential (primary) hypertension; F17.200 Nicotine dependence, unspecified, uncomplicated; G47.30 Sleep apnea, unspecified; Z88.0 Allergy status to penicillin; Z91.018 Allergy to other foods; Z79.899 Other long term (current) drug therapy
CPT/HCPCS: 93005; 93010; 94640; 96372; 99283; J1100; Q0162

== ENCOUNTER 2019-01-31 11:37 | Emergency (ER) | payer MEDICAID ==
[2019-01-31 12:01] VITALS: BP 129/69
== END 2019-01-31 14:36 | disposition home or self-care (01) ==
LOC: ED 11:37
DX: J45.901 Unspecified asthma with (acute) exacerbation (principal); I10 Essential (primary) hypertension; G40.909 Epilepsy, unspecified, not intractable, without status epilepticus; F17.200 Nicotine dependence, unspecified, uncomplicated; Z98.890 Other specified postprocedural states; Z79.1 Long term (current) use of non-steroidal anti-inflammatories (NSAID); Z79.899 Other long term (current) drug therapy; Z88.0 Allergy status to penicillin
CPT/HCPCS: 36415; 71045; 80053; 82803; 83880; 85025; 94644; 96365; 96375; 99284; J2930; J3475; J7030

== ENCOUNTER 2019-12-01 21:50 | Inpatient (IN) | payer MEDICAID ==
[2019-12-01] MEDS ORDERED: MAGNESIUM SULFATE 2 GM/50 ML BAG IV ONE ×2 (22:17→22:24)
[2019-12-01] MEDS ORDERED: ALBUTEROL 2.5 MG/3 ML NEBU IH ONE ×3 (22:17→22:24)
[2019-12-01] MEDS ORDERED: IPRATROPIUM/ALBUTEROL SULFATE 3 ML AMPUL.NEB IH ONE (22:17)
[2019-12-01] MEDS ORDERED: methylPREDNISolone Sod Succinate 125 MG/2 ML INJ ONE (22:17)
[2019-12-01] MEDS ORDERED: IPRATROPIUM 0.02% NEBU 2.5 ML IH ONE (22:24)
[2019-12-01] MEDS: methylPREDNISolone Sod Succinate 125 MG/2 ML INJ IV ONE ×2 (22:37→22:39)
--- NOTE | 2019-12-01 23:13 | XRay Report ---
CHEST 1 VIEW INDICATION / CLINICAL INFORMATION: sob. COMPARISON: 01/31/2019 FINDINGS: SUPPORT DEVICES: None. HEART / MEDIASTINUM: Stable. LUNGS / PLEURA: No significant pulmonary or pleural abnormality. No pneumothorax. ADDITIONAL FINDINGS: No significant additional findings. IMPRESSION: 1. No acute findings. Signer Name: Logan Adame MD Signed: 12/01/2019 11:09 PM Workstation Name: [id number]
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
[2019-12-02] MEDS ORDERED: ALBUTEROL 2.5 MG/3 ML NEBU IH ONE ×2 (01:31→08:20)
[2019-12-02 03:21] LABS: Basophils % (Auto) 0.2 % (0.0-1.8); Eosinophils % (Auto) 0.3 % (0.0-4.3); Hematocrit 38.1 % (30.3-42.9); Hemoglobin 12.5 gm/dl (10.1-14.3); Lymphocytes # (Auto) 0.4 K/mm3 (1.2-5.4); Mean Corpuscular HGB Conc 33 % (30-34); Mean Corpuscular Volume 90 fl (79-97); Monocytes # (Auto) 0.1 K/mm3 (0.0-0.8); Monocytes % (Auto) 1.8 % (0.0-7.3); Platelet Count 173 K/mm3 (140-440); Red Blood Count 4.24 M/mm3 (3.65-5.03); Red Cell Distribution Width 13.9 % (13.2-15.2)
[2019-12-02 03:29] LABS: Blood Urea Nitrogen 10 mg/dL (7-17); Hemolysis Index 54
[2019-12-02 03:30] LABS: BUN/Creatinine Ratio 17
[2019-12-02] MEDS ORDERED: POTASSIUM CHLORIDE ER 20 MEQ TAB PO ONE ×2 (03:51→05:12)
[2019-12-02] MEDS ORDERED: PROMETHAZINE/CODEINE 6.25-10 MG ORAL LIQD 5 ML PO PRN (08:46)
[2019-12-02] MEDS ORDERED: ALBUTEROL 2.5 MG/3 ML NEBU IH PRN (08:47)
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
[2019-12-02] MEDS ORDERED: ACETAMINOPHEN 325 MG TAB PO PRN (08:54)
[2019-12-02] MEDS: methylPREDNISolone Sod Succinate 125 MG/2 ML INJ IV SCH ×2 (11:34→18:04)
[2019-12-02] MEDS: PANTOPRAZOLE 40 MG TAB PO SCH (11:38)
[2019-12-02] MEDS: IPRATROPIUM/ALBUTEROL SULFATE 3 ML AMPUL.NEB IH SCH ×4 (11:47→20:13)
[2019-12-02] MEDS: KETOROLAC 30 MG/1 ML INJ IV PRN (16:20)
[2019-12-02] MEDS: GABAPENTIN 100 MG CAP PO SCH ×2 (18:06→22:10)
[2019-12-02] MEDS: MONTELUKAST 10 MG TAB PO SCH (18:06)
[2019-12-02] MEDS: ENOXAPARIN 40 MG/0.4 ML INJ SUB-Q SCH (22:10)
[2019-12-03] MEDS: IPRATROPIUM/ALBUTEROL SULFATE 3 ML AMPUL.NEB IH SCH ×6 (00:17→20:19)
[2019-12-03] MEDS: methylPREDNISolone Sod Succinate 125 MG/2 ML INJ IV SCH ×3 (01:19→17:53)
[2019-12-03] MEDS: GABAPENTIN 100 MG CAP PO SCH ×3 (05:19→22:24)
[2019-12-03 05:50] LABS: BUN/Creatinine Ratio 25; Blood Urea Nitrogen 20 mg/dL (7-17); Hemolysis Index 5
--- NOTE | 2019-12-03 10:56 | Progress Note ---
Assessment and Plan Assessment and plan: --Acute exacerbation of bronchial asthma/COPD; Oxygen titrate O2 sats to more than 90%, nebulizers IV steroids, IV antibiotics, supportive senior care oxygen evaluation at discharge --Status asthmaticus; Continue nebulizers, IV steroids, inhalation steroids IV antibiotics, supportive care Evaluation for home oxygen at discharge --Peripheral neuropathy; Continue gabapentin, supportive care --Obesity; BMI 32.6 advised diet modification Exercise as tolerated and weight reduction When medically stable --DVT prophylaxis; Lovenox --DC planning per case management We will closely monitor the patient and adjust the management as needed Plan of care reviewed with the patient and her nurse Will discharge home tomorrow if stable History Interval history: I have seen and examined the patient at the bedside today Patient's chart and medications reviewed Patient continues to have shortness of breath Significant improvement since yesterday Patient says she feels better Complains of some cough Vital signs noted Hospitalist Physical - Constitutional Vitals: Temp Pulse Resp BP Pulse Ox 97.8 F 89 17 134/65 98 12/03/19 04:27 12/03/19 08:00 12/03/19 08:00 12/03/19 04:27 12/03/19 04:27 General appearance: Present: mild distress, well-nourished, obese, other (Feels better today) - EENT Eyes: Present: PERRL, EOM intact - Neck Neck: Present: supple, normal ROM - Respiratory Respiratory effort: normal Respiratory: bilateral: diminished, rhonchi, wheezing - Cardiovascular Rhythm: regular Heart Sounds: Present: S1 & S2 - Extremities Extremities: no ischemia, No edema - Abdominal General gastrointestinal: soft, non-tender, non-distended, normal bowel sounds - Integumentary Integumentary: Present: clear, warm - Psychiatric Psychiatric: appropriate mood/affect, cooperative - Neurologic Neurologic: CNII-XII intact, moves all extremities Results - Labs CBC & Chem 7: 12/02/19 02:42 12/03/19 04:50 Labs: Laboratory Last Values WBC 4.8 K/mm3 (4.5-11.0) 12/02/19 02:42 RBC 4.24 M/mm3 (3.65-5.03) 12/02/19 02:42 Hgb 12.5 gm/dl (10.1-14.3) 12/02/19 02:42 Hct 38.1 % (30.3-42.9) 12/02/19 02:42 MCV 90 fl (79-97) 12/02/19 02:42 MCH 30 pg (28-32) 12/02/19 02:42 MCHC 33 % (30-34) 12/02/19 02:42 RDW 13.9 % (13.2-15.2) 12/02/19 02:42 Plt Count 173 K/mm3 (140-440) 12/02/19 02:42 Lymph % (Auto) 9.0 % (13.4-35.0) L 12/02/19 02:42 [place] % (Auto) 1.8 % (0.0-7.3) 12/02/19 02:42 Eos % (Auto) 0.3 % (0.0-4.3) 12/02/19 02:42 Baso % (Auto) 0.2 % (0.0-1.8) 12/02/19 02:42 Lymph # (Auto) 0.4 K/mm3 (1.2-5.4) L 12/02/19 02:42 [place] # (Auto) 0.1 K/mm3 (0.0-0.8) 12/02/19 02:42 Eos # (Auto) 0.0 K/mm3 (0.0-0.4) 12/02/19 02:42 Baso # (Auto) 0.0 K/mm3 (0.0-0.1) 12/02/19 02:42 Seg Neutrophils % 88.7 % (40.0-70.0) H 12/02/19 02:42 Seg Neutrophils # 4.3 K/mm3 (1.8-7.7) 12/02/19 02:42 Sodium 141 mmol/L (137-145) 12/03/19 04:50 Potassium 5.5 mmol/L (3.6-5.0) H D 12/03/19 04:50 Chloride 106.5 mmol/L (98-107) 12/03/19 04:50 Carbon Dioxide 22 mmol/L (22-30) 12/03/19 04:50 Anion Gap 18 mmol/L 12/03/19 04:50 BUN 20 mg/dL (7-17) H 12/03/19 04:50 Creatinine 0.8 mg/dL (0.6-1.2) 12/03/19 04:50 Estimated GFR > 60 ml/min 12/03/19 04:50 BUN/Creatinine Ratio 25 % 12/03/19 04:50 Glucose 123 mg/dL (65-100) H 12/03/19 04:50 Calcium 10.0 mg/dL (8.4-10.2) 12/03/19 04:50 Magnesium 2.10 mg/dL (1.7-2.3) 12/03/19 04:50 [place]/IV: Voiding Method Toilet IV Catheter Type [Right INT / Saline Lock Antecubital] Active Medications - Current Medications Current Medications: Generic Name Dose Route Start Last Admin Trade Name Freq PRN Reason Stop Dose Admin Acetaminophen 650 mg 12/02/19 08:54 12/02/19 11:37 Tylenol PO 650 mg Q4H PRN Administration Pain, Mild (1-3) Albuterol 2.5 mg 12/02/19 08:47 Proventil IH Q4HRT PRN Shortness Of Breath Albuterol/Ipratropium 1 ampul 12/02/19 12:00 12/03/19 08:23 Duoneb *Not For Prn Use* IH 1 ampul Q4HRT ANURAG Administration Enoxaparin Sodium 40 mg 12/02/19 22:00 12/02/19 22:10 Enoxaparin SUB-Q 40 mg QDAY@2200 ANURAG Administration Protocol Gabapentin 100 mg 12/02/19 14:00 12/03/19 05:19 Gabapentin PO 100 mg Q8HR ANURAG Administration Ketorolac Tromethamine 15 mg 12/02/19 08:54 12/02/19 16:20 Toradol IV 12/07/19 08:53 15 mg Q6H PRN Administration Pain, Moderate (4-6) Levofloxacin 750 mg 12/03/19 11:00 Levaquin PO Q24HR [facility] Methylprednisolone Sodium Succinate 80 mg 12/02/19 10:00 12/03/19 01:19 Solu-Medrol IV 80 mg Q8H ANURAG Administration Montelukast Sodium 10 mg 12/02/19 18:00 12/02/19 18:06 Singulair PO 10 mg QPM ANURGA Administration Pantoprazole Sodium 40 mg 12/02/19 09:00 12/02/19 11:38 Protonix PO 40 mg QDAC ANURAG Administration Promethazine HCl/Codeine 5 ml 12/02/19 08:46 Phenergan/Codeine 6.25-10 Mg/5ml PO Q6HR PRN Cough
[2019-12-03] MEDS ORDERED: SODIUM POLYSTYRENE 15 GM/60 ML ORAL LIQD PO ONE (11:00)
[2019-12-03] MEDS: PANTOPRAZOLE 40 MG TAB PO SCH (12:39)
[2019-12-03] MEDS: levoFLOXacin 750 MG TAB PO SCH (12:39)
[2019-12-03] MEDS: MONTELUKAST 10 MG TAB PO SCH (17:48)
[2019-12-03] MEDS: methylPREDNISolone Sod Succinate 40 MG/1 ML INJ IV SCH (22:24)
[2019-12-03] MEDS: KETOROLAC 30 MG/1 ML INJ IV PRN (22:24)
[2019-12-03] MEDS: ENOXAPARIN 40 MG/0.4 ML INJ SUB-Q SCH (22:24)
[2019-12-04] MEDS: IPRATROPIUM/ALBUTEROL SULFATE 3 ML AMPUL.NEB IH SCH ×5 (00:06→15:17)
[2019-12-04] MEDS: GABAPENTIN 100 MG CAP PO SCH ×2 (06:27→13:47)
[2019-12-04] MEDS: methylPREDNISolone Sod Succinate 40 MG/1 ML INJ IV SCH ×2 (06:27→13:48)
[2019-12-04] MEDS: PANTOPRAZOLE 40 MG TAB PO SCH (10:30)
[2019-12-04] MEDS: levoFLOXacin 750 MG TAB PO SCH (10:30)
[2019-12-04 14:19] VITALS: BP 120/63
--- NOTE | 2019-12-04 15:08 | Discharge Summary ---
Providers - Providers Date of Admission: 12/03/19 10:56 Date of discharge: 12/04/19 Attending physician: STUART JARAMILLO Primary care physician: DOCK MANAGER Hospitalization Reason for admission: Worsening shortness of breath/acute exacerbation of COPD/asthma Condition: Stable Pertinent studies: Chest x-ray; no acute abnormality Hospital course: 49-year-old female patient with a past medical history of asthma with previous history of intubation in 2000, COPD, hypertension, and seizures was admitted through emergency room with worsening shortness of breath of 1 week duration worse for the 2 days ,Initial evaluation in the emergency room is distant with acute exacerbation of bronchial asthma and COPD.Patient was admitted to the hospital managed with oxygen titrate O2 sats to more than 90%, nebulizers IV steroids IV antibiotics and supportive carePatient steroids tapered slowly and symptoms significantly improved Patient also counseled the importance of adhering to the treatment plan and regular follow-up visit and compliance with medications and diet and exercise Patient symptoms slowly but gradually improved Today patient is comfortable no new complaints vital signs stable physical examination unremarkable Hemodynamically and clinically stable at discharge Patient's resting room air and ambulatory room air O2 sats are more than 95 to 96%, no indication for home oxygen Discharge diagnosis --Acute exacerbation of bronchial asthma/COPD; No evidence of hypoxia on admission Oxygen IV steroids IV antibiotics and supportive care --Status asthmaticus; significantly improved Continue nebulizers, IV steroids, inhalation steroids IV antibiotics, DC on oral antibiotics Patient is resting and ambulatory room air O2 sats more than 95% No indication for home oxygen --Peripheral neuropathy; Continue gabapentin, supportive care --Obesity; BMI 32.6 advised diet modification Exercise as tolerated and weight reduction When medically stable --DVT prophylaxis; received Lovenox during hospital stay Stable at discharge Disposition: DC-01 TO HOME OR SELFCARE Time spent for discharge: 32 min Core Measure Documentation - Palliative Care Palliative Care/ Comfort Measures: Not Applicable - Core Measures Any of the following diagnoses?: none Exam - Constitutional Vitals: Temp Pulse Resp BP Pulse Ox 97.3 F L 64 19 120/63 99 12/04/19 12:16 12/04/19 12:16 12/04/19 12:16 12/04/19 12:16 12/04/19 12:16 General appearance: Present: no acute distress, well-nourished, obese - EENT Eyes: Present: PERRL, EOM intact - Neck Neck: Present: supple, normal ROM - Respiratory Respiratory effort: normal Respiratory: bilateral: diminished, negative: rales, rhonchi, wheezing - Cardiovascular Rhythm: regular Heart Sounds: Present: S1 & S2 - Extremities Extremities: no ischemia, No edema - Abdominal General gastrointestinal: Present: soft, non-tender, non-distended, normal bowel sounds - Integumentary Integumentary: Present: clear, warm - Musculoskeletal Musculoskeletal: strength equal bilaterally - Psychiatric Psychiatric: appropriate mood/affect, cooperative - Neurologic Neurologic: CNII-XII intact Plan Activity: advance as tolerated Diet: other (Cardiac diet) Additional Instructions: Your resting and ambulatory room air oxygen saturations are more than 95%. You do not need home oxygen. If you have worsening symptoms contact MD or go to emergency room. Exercise as tolerated , diet modification and weight reduction when medically stable Follow up with: PRIMARY CARE,MD [Primary Care Provider] - 7 Days Prescriptions: levoFLOXacin [Levaquin TAB] 750 mg PO Q24HR #3 tablet Promethazine /Codeine [Phenergan/Codeine 6.25-10 mg/5 ml] 5 ml PO Q6HR PRN #1 bottle PRN Reason: Cough Prednisone [predniSONE 10 mg (6-Day Pack, 21 Tabs)] 10 mg PO .TAPER #1 tab.ds.pk Pantoprazole [Protonix TAB] 40 mg PO QDAC #20 tablet
== END 2019-12-04 16:27 | disposition home or self-care (01) | DRG 202 ==
LOC: ED 21:50 → 3A 12-02 04:20 → OBSVTOIN 12-03 10:56
PROVIDERS: ADMIT Internal Medicine Geriatric Medicine; ATTEND Internal Medicine
DX: J45.902 Unspecified asthma with status asthmaticus (principal); J44.1 Chronic obstructive pulmonary disease with (acute) exacerbation; I10 Essential (primary) hypertension; G62.9 Polyneuropathy, unspecified; Z88.0 Allergy status to penicillin; Z88.1 Allergy status to other antibiotic agents; Z88.8 Allergy status to other drugs, medicaments and biological substances; E66.9 Obesity, unspecified; Z68.32 Body mass index [BMI] 32.0-32.9, adult
CPT/HCPCS: 36415; 71045; 80048; 83735; 84132; 85025; 94640; 96365; 96366; G0378; J1650; J1885; J1956; J2920; J2930; J3475

== ENCOUNTER 2020-07-18 10:04 | Emergency (ER) | payer MEDICAID ==
[2020-07-18] MEDS ORDERED: methylPREDNISolone Sod Succinate 125 MG/2 ML INJ IV ONE (10:19)
[2020-07-18] MEDS ORDERED: IPRATROPIUM/ALBUTEROL SULFATE 3 ML AMPUL.NEB IH ONE (10:19)
--- NOTE | 2020-07-18 10:26 | Emergency Department Report ---
Minor Respiratory - HPI Chief Complaint: Dyspnea/Respdistress Stated Complaint: ASTHMA/WHEEZING/COUGH Time Seen by Provider: 07/18/20 10:17 Duration: 3 Days Pain Location: Chest Severity: mild Minor Respiratory: Yes Sore Throat, Yes Able to Tolerate Fluids, Yes Cough, Yes Shortness of Breath, No Rhinorrhea, No Ear Pain, No Sick Contacts, No Hemoptysis, No Chest Pain, No Fever Other History: Patient is a pleasant 49-year-old -Citizen Of [place] female that comes to the emergency room today with wheezing. Patient is not on home oxygen. She states she has been using her inhalers at home as instructed. However, yesterday with the rain she noticed that she was having more wheezing. She went to her primary care's office this morning. However, the primary care was closed so she came here. She is on nebs and inhaler at home. Patient was wheezing on exam and brought to [facility]. She has no fever or chills. She denies purulent sputum. She denies weakness or fatigue. She denies abdominal pain. Patient was ambulatory to [facility] without desaturation. ED Review of Systems ROS: Stated complaint: ASTHMA/WHEEZING/COUGH Other details as noted in HPI Comment: All other systems reviewed and negative ED Past Medical Hx - Past Medical History Previous Medical History?: Yes Hx Hypertension: Yes Hx Congestive Heart Failure: No Hx Diabetes: No Hx Renal Disease: No Hx Seizures: Yes Hx Kidney Stones: No Hx Asthma: Yes Hx COPD: Yes Hx HIV: No Additional medical history: Bronchitis,sleep apnea//Fx pelvis in 2016. Intubation 2000 - Surgical History Past Surgical History?: No Hx Pacemaker: No Additional Surgical History: right arm and leg stabbing nothing acute - Family History Family history: no significant - Social History Smoking Status: Never Smoker Substance Use Type: None - Medications Home Medications: Home Medications Medication Instructions Recorded Confirmed Last Taken Type Albuterol Sulfate [Albuterol 0.63% 0.63 mg IH Q4HR PRN #30 ml 01/31/19 12/02/19 Unknown Rx NEBS] Nebulizer [Truneb Nebulizer] 1 each MC Q4HR PRN #1 each 01/31/19 12/02/19 Unknown Rx Albuterol Mdi (or & Nicu Only) 2 puff IH QID PRN 12/02/19 12/02/19 Unknown History [ProAir HFA Inhaler] Cholecalciferol (Vitamin D3) 50,000 unit PO QDAY 12/02/19 12/02/19 Unknown History [Vitamin D3 50,000UNIT CAP] Gabapentin 100 mg PO Q8HR 12/02/19 12/02/19 Unknown History Montelukast [Singulair] 10 mg PO QPM 12/02/19 12/02/19 Unknown History Pantoprazole [Protonix TAB] 40 mg PO QDAC #20 tablet 12/04/19 Unknown Rx Cetirizine HCl [ZyrTEC] 10 mg PO DAILY #30 capsule 07/18/20 Unknown Rx Fluticasone [Flonase] 1 spray NS QDAY #1 bottle 07/18/20 Unknown Rx predniSONE [Deltasone] 20 mg PO DAILY #5 tablet 07/18/20 Unknown Rx Minor Respiratory Exam - Exam General: Vital signs noted. No distress. Alert and acting appropriately. HEENT: Yes Moist Mucous Membranes, No Pharyngeal Erythema, No Pharyngeal Exudates, No Rhinorrhea, No Conjuctival Injection, No Frontal Tenderness, No Maxillary Tenderness Ear: Neither TM Bulge, Neither TM Erythema, Neither EAC Pain, Neither EAC Discharge Neck: Yes Supple, No Adenopathy Lungs: Yes Good Air Exchange, Yes Wheezes, No Ronchi, No Stridor, No Cough, No Labored Respirations, No Retractions, No Use of Accessory Muscles, No Other Abnormal Lung Sounds Heart: Yes Regular, No Murmur Abdomen: Yes Normal Bowel Sounds, No Tenderness, No Peritoneal Signs Skin: No Rash, No Edema Neurologic: Alert and oriented, no deficits. Musculoskeletal: Unremarkable. ED Course Vital Signs 07/18/20 10:11 Temperature 99.1 F Pulse Rate 100 H Respiratory 20 Rate Blood Pressure 153/78 [Right] O2 Sat by Pulse 100 Oximetry ED Medical Decision Making - Radiology Data Radiology results: report reviewed, image reviewed No acute process - Medical Decision Making Vital Signs 07/18/20 10:11 Temperature 99.1 F Pulse Rate 100 H Respiratory 20 Rate Blood Pressure 153/78 [Right] O2 Sat by Pulse 100 Oximetry X-ray with no acute process Peak flows requested. Patient given Solu-Medrol and ipratropium and DuoNeb while in [facility]. Her wheezing only slightly improved so she was given 2 g of IV mag. With these interventions her wheezing improved. She denies shortness of breath. Denies chest pain. Room air sats 100%. Patient is ambulatory, nontoxic, taking p.o. and in no acute distress. Patient being discharged home with discharge plan of care including medications, follow-up and activity instructions. She verbalizes understanding of her plan of care. Vital Signs 07/18/20 07/18/20 10:11 12:53 Temperature 99.1 F 98.1 F Pulse Rate 100 H 93 H Respiratory 20 21 Rate Blood Pressure 153/78 148/86 [Right] O2 Sat by Pulse 100 99 Oximetry - Differential Diagnosis Asthma acute exacerbation with or without infection Critical care attestation.: If time is entered above; I have spent that time in minutes in the direct care of this critically ill patient, excluding procedure time. ED Disposition Clinical Impression: Acute exacerbation of COPD with asthma Disposition: - TO HOME OR SELFCARE Is pt being admited?: No Does the pt Need Aspirin: No Condition: Stable Instructions: Asthma, Adult, Asthma (ED) Additional Instructions: FOLLOW UP WITH PCP in 48 hours for recheck REFERRAL BELOW MEDS ORDERED STAY WELL HYDRATED MOTRIN OR TYLENOL FOR PAIN OVER THE COUNTER COUGH MEDICATIONS IF NEEDED Continue your home asthma medications Prescriptions: predniSONE [Deltasone] 20 mg PO DAILY #5 tablet Fluticasone [Flonase] 1 spray NS QDAY #1 bottle Cetirizine HCl [ZyrTEC] 10 mg PO DAILY #30 capsule Referrals: TOPHER DOMINGUEZ MD [Staff Physician] - 3-5 Days Time of Disposition: 11:28
[2020-07-18] MEDS ORDERED: ALBUTEROL 2.5 MG/3 ML NEBU IH ONE (11:01)
--- NOTE | 2020-07-18 11:21 | XRay Report ---
XR chest 1V ap INDICATION / CLINICAL INFORMATION: sob. COMPARISON: 12/01/2019 FINDINGS: SUPPORT DEVICES: None. HEART /PULMONARY VASCULATURE: No significant abnormality. LUNGS / PLEURA: No significant pulmonary or pleural abnormality. No pneumothorax. ADDITIONAL FINDINGS: No significant additional findings. IMPRESSION: 1. No acute findings. Signer Name: Jose Ramon Moore MD Signed: 07/18/2020 11:16 AM Workstation Name: [email or web address]
[2020-07-18] MEDS ORDERED: guaiFENesin 100 MG/5 ML ORAL LIQD PO ONE (11:28)
[2020-07-18] MEDS ORDERED: MAGNESIUM SULFATE 2 GM/50 ML BAG IV ONE (11:39)
[2020-07-18 12:54] VITALS: BP 148/86
== END 2020-07-18 12:54 | disposition home or self-care (01) ==
LOC: ED 10:04
DX: J44.1 Chronic obstructive pulmonary disease with (acute) exacerbation (principal); I10 Essential (primary) hypertension; R56.9 Unspecified convulsions; Z98.890 Other specified postprocedural states; Z79.899 Other long term (current) drug therapy; Z88.0 Allergy status to penicillin; Z91.018 Allergy to other foods
CPT/HCPCS: 71045; 94640; 96365; 96375; 99284; J2930; J3475

== ENCOUNTER 2020-08-16 11:41 | Outpatient (CLI) | payer MEDICAID ==
[2020-08-16 12:57] LABS: Hematocrit 40.4 % (30.3-42.9); Mean Corpuscular HGB Conc 35 % (30-34); Mean Corpuscular Volume 87 fl (79-97); Platelet Count 179 K/mm3 (140-440); Red Blood Count 4.65 M/mm3 (3.65-5.03); Red Cell Distribution Width 13.9 % (13.2-15.2)
[2020-08-16 13:08] LABS: ABG Base Excess -0.6 mmol/L (-2.0-3.0); ABG HCO3 23.7 mmol/L (20.0-26.0); ABG Methemoglobin 0.5 % (0.0-1.5); ABG Oxygen Saturation 94.9 % (95.0-99.0); ABG PCO2 38.3 mm Hg; ABG PH 7.41 pH Units (7.350-7.450); ABG PO2 72.3 mm Hg (80.0-90.0)
[2020-08-16 13:36] LABS: Alanine Aminotransferase 15 units/L (7-56); Albumin 4.7 g/dL (3.9-5); Blood Urea Nitrogen 13 mg/dL (7-17); Chol/HDL Ratio 1.44 %; HDL Cholesterol 113 mg/dL (40-59); Hemolysis Index 8; LDL Cholesterol,Direct 39 mg/dL (50-130)
[2020-08-16 13:48] LABS: BUN/Creatinine Ratio 26
--- NOTE | 2020-08-16 13:54 | XRay Report ---
Paranasal sinus 4 views INDICATION: Nasal pressure FINDINGS: Visualized portions of the maxillary sinuses, frontal sinuses and ethmoid sinuses are clear . IMPRESSION: No significant sinus disease is definitely seen. Signer Name: Ji Long MD Signed: 08/16/2020 1:49 PM Workstation Name: [id number]
--- NOTE | 2020-08-16 14:14 | XRay Report ---
CHEST 1 VIEW INDICATION: ACUTE BRONCHITIS. COMPARISON: 07/18/2020 FINDINGS: Support devices: None. Heart: Within normal limits. Lungs/Pleura: No acute air space or interstitial disease. Additional findings: None. IMPRESSION: Unremarkable chest films. Signer Name: Deangelo Staples Jr, MD Signed: 08/16/2020 2:10 PM Workstation Name: [id number]
== END 2020-08-16 11:42 | disposition home or self-care (01) ==
LOC: XRAY 11:41
PROVIDERS: ATTEND Internal Medicine
DX: K21.9 Gastro-esophageal reflux disease without esophagitis (principal); D64.9 Anemia, unspecified; G40.909 Epilepsy, unspecified, not intractable, without status epilepticus; F32.9 Major depressive disorder, single episode, unspecified; J45.21 Mild intermittent asthma with (acute) exacerbation; J30.89 Other allergic rhinitis; J20.9 Acute bronchitis, unspecified; G47.33 Obstructive sleep apnea (adult) (pediatric)
CPT/HCPCS: 36415; 36600; 70220; 71046; 80053; 80061; 82785; 82803; 84436; 84443; 85027; 86003

== ENCOUNTER 2020-11-07 20:20 | Emergency (ER) | payer MEDICAID ==
--- NOTE | 2020-11-07 23:23 | Emergency Department Report ---
ED General Adult HPI - General Chief complaint: Headache Stated complaint: CHILLS, BODY ACHES Time Seen by Provider: 11/07/20 22:59 Source: patient Mode of arrival: Ambulatory Limitations: No Limitations - History of Present Illness Initial comments: 50-year-old female patient with history of asthma presents to the emergency department with complaints of chills, myalgias, headache, dry mouth, sinus pressure, sneezing, and coughing starting yesterday. Patient has been taking Tylenol and Motrin with limited relief. No known sick contacts. Patient has not received her COVID-19 vaccination series. Denies neck stiffness, rash, fever, nausea, vomiting, chest pain, syncope, seizure. Denies all other complaints at this time. - Related Data Home Medications Medication Instructions Recorded Confirmed Last Taken Albuterol Mdi (or & Nicu Only) 2 puff IH QID PRN 12/02/19 12/02/19 Unknown [ProAir HFA Inhaler] Cholecalciferol (Vitamin D3) 50,000 unit PO QDAY 12/02/19 12/02/19 Unknown [Vitamin D3 50,000UNIT CAP] Gabapentin 100 mg PO Q8HR 12/02/19 12/02/19 Unknown Montelukast [Singulair] 10 mg PO QPM 12/02/19 12/02/19 Unknown Previous Rx's Medication Instructions Recorded Last Taken Type Albuterol Sulfate [Albuterol 0.63% 0.63 mg IH Q4HR PRN #30 ml 01/31/19 Unknown Rx NEBS] Nebulizer [Truneb Nebulizer] 1 each MC Q4HR PRN #1 each 01/31/19 Unknown Rx Pantoprazole [Protonix TAB] 40 mg PO QDAC #20 tablet 12/04/19 Unknown Rx Cetirizine HCl [ZyrTEC] 10 mg PO DAILY #30 capsule 07/18/20 Unknown Rx Fluticasone [Flonase] 1 spray NS QDAY #1 bottle 07/18/20 Unknown Rx predniSONE [Deltasone] 20 mg PO DAILY #5 tablet 07/18/20 Unknown Rx Cetirizine HCl 10 mg PO DAILY #10 tablet 11/08/20 Unknown Rx Fluticasone [Flonase] 1 spray NS QDAY #1 bottle 11/08/20 Unknown Rx Allergies Allergy/AdvReac Type Severity Reaction Status Date / Time Penicillins Allergy Swelling Verified 11/07/20 22:54 tomato [Tomato] Allergy Hives Verified 11/07/20 22:54 ED Review of Systems ROS: Stated complaint: CHILLS, BODY ACHES Other details as noted in HPI Other: GENERAL: Positive for chills. ENT: Positive for dry mouth, sinus pressure, sneezing. CARDIOVASCULAR: Negative for chest pain, palpitations, lower extremity swelling. PULMONARY: Positive for cough GASTROINTESTINAL: Negative for abdominal pain, nausea, vomiting, diarrhea, constipation. MUSCULOSKELETAL: Positive for myalgias. NEUROLOGICAL: Positive for headache. INTEGUMENTARY: Negative for erythema, rash, diaphoresis, laceration, ecchymosis. HEMATOLOGICAL: Negative for hemoptysis, hematemesis, hematochezia, hematuria. PSYCHIATRIC: Negative for hallucinations, suicidal ideation, homicidal ideation, anxiety, depression. ED Past Medical Hx - Past Medical History Hx Hypertension: Yes Hx Congestive Heart Failure: No Hx Diabetes: No Hx Renal Disease: No Hx Seizures: Yes Hx Kidney Stones: No Hx Asthma: Yes Hx COPD: Yes Hx HIV: No Additional medical history: Bronchitis,sleep apnea//Fx pelvis in 2016. Intubation 2000 - Surgical History Hx Pacemaker: No Additional Surgical History: right arm and leg stabbing nothing acute - Social History Smoking Status: Never Smoker Substance Use Type: None - Medications Home Medications: Home Medications Medication Instructions Recorded Confirmed Last Taken Type Albuterol Sulfate [Albuterol 0.63% 0.63 mg IH Q4HR PRN #30 ml 01/31/19 12/02/19 Unknown Rx NEBS] Nebulizer [Truneb Nebulizer] 1 each MC Q4HR PRN #1 each 01/31/19 12/02/19 Unknown Rx Albuterol Mdi (or & Nicu Only) 2 puff IH QID PRN 12/02/19 12/02/19 Unknown History [ProAir HFA Inhaler] Cholecalciferol (Vitamin D3) 50,000 unit PO QDAY 12/02/19 12/02/19 Unknown History [Vitamin D3 50,000UNIT CAP] Gabapentin 100 mg PO Q8HR 12/02/19 12/02/19 Unknown History Montelukast [Singulair] 10 mg PO QPM 12/02/19 12/02/19 Unknown History Pantoprazole [Protonix TAB] 40 mg PO QDAC #20 tablet 10/24/20 Unknown Rx Cetirizine HCl [ZyrTEC] 10 mg PO DAILY #30 capsule 07/18/20 Unknown Rx Fluticasone [Flonase] 1 spray NS QDAY #1 bottle 07/18/20 Unknown Rx predniSONE [Deltasone] 20 mg PO DAILY #5 tablet 07/18/20 Unknown Rx Cetirizine HCl 10 mg PO DAILY #10 tablet 11/08/20 Unknown Rx Fluticasone [Flonase] 1 spray NS QDAY #1 bottle 11/08/20 Unknown Rx ED Physical Exam - General Limitations: No Limitations - Other Other exam information: General: Awake and alert. No acute distress. Head: Atraumatic, normocephalic. Right frontal and bilateral maxillary sinus tenderness. Eyes: Extraocular movements intact and painless. Pupils are equal and round. Normal sclera and conjunctiva. ENT: Oral mucosa is moist. Normal pharyngeal exam. Normal otoscopic exam. Neck: Supple. No lymphadenopathy. Pulmonary: No respiratory distress. Clear to auscultation bilaterally. Cardiac: Regular rate and rhythm. Pulses are palpable and equal bilaterally. No lower extremity cyanosis or edema. Skin: Warm and dry. No rashes. Abdomen: Soft, non-tender, non-protuberant. No guarding, rigidity, or rebound. Bowel sounds are normal. No organomegaly or masses noted. Back: Normal alignment. No CVA tenderness. Extremities: Symmetrical. Full range of motion intact. Neurological: Alert and oriented, appropriately interactive, no focal deficits. Psych: Cooperative. Appropriate mood and affect. Speech is evenly metered. Thoughts are logically construed. ED Course Vital Signs 11/07/20 22:55 Temperature 99.0 F Pulse Rate 85 Respiratory 20 Rate Blood Pressure 163/78 O2 Sat by Pulse 98 Oximetry ED Medical Decision Making - Medical Decision Making Differential diagnosis including but not limited to: sinusitis, pneumonia, periorbital/orbital cellulitis, meningitis, viral infection On reevaluation, patient remains stable. Repeat neurological exam is nonfocal. Patient is resting comfortably. Chest x-ray without acute process. COVID-19 testing is currently unavailable at this facility. History and exam findings suggestive of sinusitis. Patient does not meet criteria for antibiotics based on current clinical presentation. Patient will be discharged home with appropr iate symptomatic treatment and referred to primary care provider for close outpatient follow-up. Patient expressed understanding and is agreeable to plan of care. Disease transmission precautions discussed. Strict return precautions provided. Repeat exam is unremarkable and benign. History, exam, diagnostic testing, and current condition do not suggest worrisome pathology to warrant further testing, continued ED treatment, admission, or surgical evaluation at this point. Given the low probability of a significant medical illness, it would be more likely to result in harm than benefit to perform further testing at this stage. Discussed findings, presumptive diagnosis, need for follow-up and specific signs/symptoms that should prompt immediate return to the emergency department. Instructions were explained in detail to the patient in addition to giving written discharge information. Patient expressed understanding and was given the opportunity to ask questions, all of which were satisfactorily answered prior to discharge home. Critical care attestation.: If time is entered above; I have spent that time in minutes in the direct care of this critically ill patient, excluding procedure time. ED Disposition Clinical Impression: Sinusitis Qualifiers: Sinusitis location: unspecified location Chronicity: acute Recurrence: not specified as recurrent Qualified Code(s): J01.90 - Acute sinusitis, unspecified Disposition: 01 HOME / SELF CARE / HOMELESS Is pt being admited?: No Does the pt Need Aspirin: No Condition: Stable Instructions: Sinusitis, Adult, [id number] Additional Instructions: Take Tylenol every 4 hours and Motrin every 8 hours as needed for pain. Take Cetirizine as directed. Use Flonase as directed. Exposure to warm humidified air may help relieve congestion. Rest. Drink plenty of fluids. Wash hands frequently to prevent disease transmission. Do not share food or drinks. Follow-up with your primary care provider this week. Call tomorrow to schedule an appointment. See referral information below. Return to the emergency department immediately for new or worsening symptoms. Specifically, return to the emergency department immediately for fever, neck stiffness, rash, abnormal bleeding/bruising, numbness, weakness, paralysis, vision changes, worsening pain, or any other concerns. Prescriptions: Cetirizine HCl 10 mg PO DAILY #10 tablet Fluticasone [Flonase] 1 spray NS QDAY #1 bottle Referrals: TOPHER DOMINGUEZ MD [Staff Physician] - 3-5 Days [facility] [Provider Group] - 3-5 Days Forms: Work/School Release Form(ED) Time of Disposition: 00:35
[2020-11-07] MEDS ORDERED: KETOROLAC 30 MG/1 ML INJ IM ONE (23:39)
--- NOTE | 2020-11-08 00:20 | XRay Report ---
CHEST 2 VIEWS INDICATION / CLINICAL INFORMATION: cough/headache/chills, hx asthma STUDY TIME: 2330 COMPARISON: None available. FINDINGS: SUPPORT DEVICES: None. HEART / MEDIASTINUM: No significant abnormality. LUNGS / PLEURA: No significant pulmonary or pleural abnormality. No pneumothorax. ADDITIONAL FINDINGS: No significant additional findings. Signer Name: Jose Altman MD Signed: 11/08/2020 12:16 AM Workstation Name: [id number]
[2020-11-08 01:03] VITALS: BP 143/78
== END 2020-11-08 00:57 | disposition home or self-care (01) ==
LOC: ED 20:20
DX: J32.9 Chronic sinusitis, unspecified (principal); I10 Essential (primary) hypertension; G43.909 Migraine, unspecified, not intractable, without status migrainosus; J44.9 Chronic obstructive pulmonary disease, unspecified; Z88.0 Allergy status to penicillin; Z91.018 Allergy to other foods
CPT/HCPCS: 71046; 96372; 99283; J1885

== ENCOUNTER 2021-03-31 12:22 | Emergency (ER) | payer MEDICAID ==
[2021-03-31] MEDS ORDERED: IPRATROPIUM/ALBUTEROL SULFATE 3 ML AMPUL.NEB IH ONE (13:30)
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
--- NOTE | 2021-03-31 14:09 | XRay Report ---
CHEST 1 VIEW 03/31/2021 12:59 PM INDICATION / CLINICAL INFORMATION: Right CP. COMPARISON: 11/07/2020. FINDINGS: SUPPORT DEVICES: None. HEART / MEDIASTINUM: No significant abnormality. LUNGS / PLEURA: No significant pulmonary or pleural abnormality. No pneumothorax. ADDITIONAL FINDINGS: No significant additional findings. IMPRESSION: No acute abnormality. Signer Name: Jaciel Mcdowell MD Signed: 03/31/2021 2:04 PM Workstation Name: [id number]
[2021-03-31] MEDS ORDERED: ASPIRIN 325 MG TAB PO ONE (14:33)
[2021-03-31 15:15] LABS: Basophils % (Auto) 0.4 % (0.0-1.8); Eosinophils % (Auto) 0.9 % (0.0-4.3); Hematocrit 44.4 % (30.3-42.9); Hemoglobin 14.7 gm/dl (10.1-14.3); Lymphocytes # (Auto) 1.2 K/mm3 (1.2-5.4); Lymphocytes % (Auto) 28.8 % (13.4-35.0); Mean Corpuscular HGB Conc 33 % (30-34); Mean Corpuscular Volume 86 fl (79-97); Monocytes # (Auto) 0.1 K/mm3 (0.0-0.8); Monocytes % (Auto) 2.3 % (0.0-7.3); Platelet Count 213 K/mm3 (140-440); Red Blood Count 5.15 M/mm3 (3.65-5.03); Red Cell Distribution Width 14.5 % (13.2-15.2)
[2021-03-31 15:25] LABS: Partial Thromboplastin Time 29.3 Sec. (24.2-36.6)
[2021-03-31 15:29] LABS: INR 0.81 (0.87-1.13)
[2021-03-31 15:39] LABS: Alanine Aminotransferase 12 units/L (7-56); Albumin 4.6 g/dL (3.9-5); Blood Urea Nitrogen 13 mg/dL (7-17); Calcium 10.3 mg/dL (8.4-10.2); Hemolysis Index 37
[2021-03-31 15:41] LABS: BUN/Creatinine Ratio 19; Bilirubin,Direct < 0.2 mg/dL (0-0.2)
[2021-03-31 15:55] LABS: Bilirubin,Urine NEG (Negative); Blood,Urine SM (Negative); Color,Urine Yellow (Yellow); Mucus,Urine FEW /HPF; Protein,Urine <15 mg/dL mg/dL (Negative); Urobilinogen,Urine < 2.0 mg/dL (<2.0); WBC,Urine < 1.0 /HPF (0.0-6.0)
[2021-03-31] MEDS ORDERED: MORPHINE 2 MG/1 ML INJ IV ONE (19:29)
[2021-03-31] MEDS ORDERED: MORPHINE 2 MG/1 ML INJ ONE (19:31)
--- NOTE | 2021-03-31 20:24 | Cat Scan Report ---
CTA CHEST WITH CONTRAST INDICATION / CLINICAL INFORMATION: Right sided chest pain. TECHNIQUE: Axial CT images were obtained through the chest after injection of 100 cc Omni 350 IV cont rast. 3 plane MIP and/or 3D reconstructions were produced. All CT scans at this location are performe d using CT dose reduction for ALARA by means of automated exposure control. COMPARISON: None available. FINDINGS: PULMONARY EMBOLUS: None. THORACIC AORTA: No significant abnormality. HEART: No significant abnormality. CORONARY ARTERY CALCIFICATION: Absent -- None. MEDIASTINUM / YOU: No significant abnormality. PLEURA: No pleural effusion. No pneumothorax. LUNGS: No acute air space or interstitial disease. ADDITIONAL FINDINGS: None. UPPER ABDOMEN: No acute findings. Calcified granuloma within the hepatic dome. SKELETAL STRUCTURES: No significant osseous abnormality. IMPRESSION: 1. No CT evidence for pulmonary embolism. 2. No acute findings. Signer Name: Raymon Miller MD Signed: 03/31/2021 8:20 PM Workstation Name: [id number]
[2021-03-31 21:38] VITALS: BP 134/67
--- NOTE | 2021-04-04 17:11 | Electrocardiograph Report ---
[facility] Test Date: 2021-03-31 Test Time: 13:12:38 Pat Name: CLARITZA ASHER Department: Room: Gender: F Hook Loader: JACKIE : 1970 Requested By: KARIN WRAY Order Number: [id number] Reading MD: Enio Hackett Measurements Intervals [place] Rate: 71 P: -5 [place]: 151 QRS: 48 QRSD: 78 T: 55 QT: 370 QTc: 404 Interpretive Statements Sinus rhythm No previous ECG available for comparison Electronically Signed On 04-04-2021 17:11:18 EST by Enio Hackett
== END 2021-03-31 21:27 | disposition home or self-care (01) ==
LOC: ED 12:22
DX: J44.1 Chronic obstructive pulmonary disease with (acute) exacerbation (principal); R07.9 Chest pain, unspecified; I10 Essential (primary) hypertension; R56.9 Unspecified convulsions
CPT/HCPCS: 36415; 71045; 71275; 80048; 80076; 81001; 83735; 83880; 84484; 84703; 85025; 85610; 85730; 87040; 87086; 93005; 93010; 94640; 96374; 99291; J2270; Q9967; 94644